=== PATIENT | male | born 1955 | race Caucasian/White ===

== ENCOUNTER 2024-02-29 22:21 | Emergency (ER) | payer MEDICARE ==
[~2024-02-29] VITALS: Ht 177.8 cm; Wt 78.9 kg
[2024-03-01] MEDS: IV NS 0.9% 1,000 ML BAG IV ONE
[2024-03-01] MEDS ORDERED: IBUPROFEN 600 MG TABLET ONE (00:35)
[2024-03-01] MEDS: IBUPROFEN 600 MG TABLET PO ONE (00:37)
[2024-03-01 01:37] VITALS: TEMP 97.6
[2024-03-01 03:04] VITALS: BP 110/64; O2SAT 95
== END 2024-03-01 04:14 | disposition home or self-care (01) ==
LOC: ER 22:28
DX: M25.511 Pain in right shoulder (principal); I10 Essential (primary) hypertension; E78.5 Hyperlipidemia, unspecified; Z87.39 Personal history of other diseases of the musculoskeletal system and connective tissue; W01.0XXA Fall on same level from slipping, tripping and stumbling without subsequent striking against object, initial encounter; Y93.89 Activity, other specified; Y92.098 Other place in other non-institutional residence as the place of occurrence of the external cause; Y99.8 Other external cause status
CPT/HCPCS: 99285; 73030; 96360; J7030